=== PATIENT | female | born 1945 | race Caucasian/White ===

== ENCOUNTER 2018-11-28 12:29 | Outpatient (CLI) | payer MEDICARE, BC | END 2018-11-28 23:59 | disposition home or self-care (01) | LOC: CFH 12:29 | PROVIDERS: ATTEND Orthopaedic Surgery | DX: M75.102 Unspecified rotator cuff tear or rupture of left shoulder, not specified as traumatic (principal); M25.412 Effusion, left shoulder; M19.012 Primary osteoarthritis, left shoulder; M24.012 Loose body in left shoulder; M75.52 Bursitis of left shoulder ==

== ENCOUNTER → 2020-04-23 | Outpatient (CLI) | payer MEDICARE, BC | END | disposition home or self-care (01) | LOC: CFH 10:22 | PROVIDERS: ATTEND Family Medicine | DX: Z13.820 Encounter for screening for osteoporosis (principal); M81.0 Age-related osteoporosis without current pathological fracture; E04.2 Nontoxic multinodular goiter; N64.4 Mastodynia; N95.9 Unspecified menopausal and perimenopausal disorder | CPT/HCPCS: 76536; 76642; 77062; 77080; 77066; G0279 ==